=== PATIENT | female | born 1980 ===

== ENCOUNTER 2018-08-07 09:00 | Outpatient (RCR) | payer OTHER ==
[2018-07-05 15:12] VITALS: BP 118/70
--- NOTE | 2018-07-05 18:57 | [facility] ONCOLOGY NOTE ---
EVENT DATE: July 05, 2018 REFERRING PHYSICIAN MARISELA Arthur, [facility] [employer] REASON FOR CONSULTATION Evaluation and management of severe iron deficiency. 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 Patient had severe iron deficiency lately, and the patient had the same problem for a few years now, but she has uterine fibroids with severe menstrual bleeding. The patient in 2014 had a GI workup with EGD and colonoscopy, and the patient was found to have a colon polyp. She had a repeat colonoscopy in 2018 which was clean as per patient. She had blood work done on the May, which showed white count 3.7, hemoglobin 7.2, hematocrit 26.1, MCV 65.4, and platelet count 517,000. Her iron studies showed serum iron 141, iron saturation 29%, total iron binding capacity 480, and ferritin level was low at 4.6. Patient currently is taking [id number] iron supplement one tablet twice daily for nearly a month together with vitamin C 2000 mg daily without much improvement in her condition. She has also some troubles with her GI symptoms from her iron supplement with constipation, abdominal discomfort, and flatulence. PAST MEDICAL HISTORY 1. Uterine fibroids. 2. Acid reflux. 3. Hiatal hernia. 4. Colon polyp. 5. Iron deficiency anemia. PAST SURGICAL HISTORY Insignificant. FAMILY HISTORY Negative for cancer or blood diseases. SOCIAL HISTORY Patient is single with no children. She is a student at [employer] preparing for PhD, but she was a teacher before. She is a never smoker and denies any abuse of alcohol or illicit drugs. CURRENT MEDICATIONS 1. Oral iron supplement. 2. Vitamin C 2000 mg daily. ALLERGIES No known drug allergies. REVIEW OF SYSTEMS CONSTITUTIONAL: No appetite or weight change. No fever, chills, or sweating. No recent infection. HEENT: Ears: No tinnitus or hearing problem. Nose: No nasal discharge or epistaxis. Throat: No sore throat or mouth ulcers. Eyes: No diplopia or visual changes. RESPIRATORY: She has shortness of breath. No cough, expectoration, or hemoptysis. CARDIOVASCULAR: No chest pain, orthopnea, or paroxysmal nocturnal dyspnea (PND). No edema. No palpitations. GASTROINTESTINAL: She has acid reflux due to hiatal hernia. She has also constipation from the oral iron pills. No nausea or vomiting. No diarrhea. No change in bowel movements. No heartburn or swallowing difficulties. No abdominal pain. No jaundice. No hematemesis, melena, or rectal bleeding. GENITOURINARY: She has heavy menstrual bleeding due to fibroids, a little better lately on oral contraceptive pills to control her bleeding. MUSCULOSKELETAL: She has left shoulder pain. NEUROLOGICAL: She has headache. No tingling or numbness in the hands or feet. No convulsions. HEMATOLOGIC/LYMPHATIC: No bleeding or easy bruising. She is weak, tired, and fatigued. No enlarged lymph nodes. SKIN: No skin rash or lumps. PSYCHIATRIC: No anxiety or depression. PHYSICAL EXAMINATION GENERAL: Looks stable. Well developed, well nourished, and in no acute distress. VITAL SIGNS: Blood pressure 118/70, pulse 83 per minute, respirations 16 per minute, temperature 98.4, pulse ox 95% on room air. HEENT: Head: Atraumatic. No sinus tenderness to palpation. Eyes: No icterus or conjunctivitis. Mouth and throat: No oral thrush or mucositis. NECK: Supple. No cervical or supraclavicular lymphadenopathy. LUNGS: Clear to auscultation and percussion bilaterally. HEART: Regular rate and rhythm. No gallops, murmurs, clicks, or rubs. ABDOMEN: Soft and lax. No tenderness. No hepatosplenomegaly. No masses. EXTREMITIES: No cyanosis, clubbing, or edema. LYMPHATICS: No peripheral lymphadenopathy. NEUROLOGICAL: Conscious, alert, and oriented times three. No focal motor or sensory deficits. PSYCHIATRIC: Mood and affect appear normal. SKIN: No skin rash, bruise, or purpuric eruption. ASSESSMENT 1. Iron deficiency anemia, most probably due to heavy menstrual bleeding due to her fibroids. Patient currently on oral iron pills, but without much improvement, and also with gastrointestinal intolerance with constipation, flatulence, and abdominal discomfort. I talked to the patient today that we are going to treat her with intravenous iron supplementation in the form of Injectafer 750 mg intravenous infusion weekly for two weeks. I am planning to check her CBC and iron studies with ferritin today, and I will repeat her testing in two months from now. I will see her in two months with a CBC and iron studies at that time. 2. Uterine fibroids with heavy menstrual bleeding. PLAN 1. CBC and iron studies with ferritin today. 2. Injectafer 750 mg IV infusion weekly for two weeks. 3. Patient to return in two months with CBC and iron studies with ferritin. 4. Patient to contact us for any new concerns or complaints. MTDD
[2018-07-29 08:15] VITALS: BP 124/82
[2018-07-29] MEDS: NS(*) 0.9% 100 ML BAG 100 ML IVPB PRN (08:39)
[2018-07-29] MEDS: LIDOCAINE/SOD BICARB 8.4% SYR ID PRN (08:39)
[2018-07-29] MEDS: FERRIC CARBOXY 750 MG SDV 750 MG in NS(*) 0.9% 250 ML BAG 250 ML IV PRN (08:44)
[2018-07-29 09:30] VITALS: BP 127/87
[~2018-08-07 09:00] MED LIST: ASCO-182 PO; DEXTROSE 5%(*) 100 ML BAG 100 ML IVPB PRN; FERR325T24 PO; LEVO1TAB12 PO
[2018-08-07 09:16] VITALS: BP 108/64
[2018-08-07] MEDS: LIDOCAINE/SOD BICARB 8.4% SYR ID PRN (09:24)
[2018-08-07] MEDS: NS(*) 0.9% 100 ML BAG 100 ML IVPB PRN (09:44)
[2018-08-07] MEDS: FERRIC CARBOXY 750 MG SDV 750 MG in NS(*) 0.9% 250 ML BAG 250 ML IV PRN (09:45)
[2018-08-07 11:05] VITALS: BP 113/70
== END 2018-10-03 ==
LOC: SPU 09:00
PROVIDERS: ATTEND Internal Medicine Hematology
DX: D50.9 Iron deficiency anemia, unspecified (principal); D25.9 Leiomyoma of uterus, unspecified; R53.1 Weakness; R53.83 Other fatigue; R06.02 Shortness of breath
CPT/HCPCS: 96365; 99202; J1439; J7050